=== PATIENT | female | born 1950 | race Caucasian/White ===

== ENCOUNTER → 2020-05-28 | Outpatient (CLI) | payer OTHER ==
[~2020-05-28] MED LIST: VITAMIN D31000 I1 PO
== END | disposition still patient (30) ==
LOC: COL.RAD 08:00
DX: Z20.828 Contact with and (suspected) exposure to other viral communicable diseases (principal)
CPT/HCPCS: A9500

== ENCOUNTER 2022-03-14 14:50 | Outpatient (CLI) | payer OTHER ==
[2022-03-14 15:19] VITALS: BP 132/76; PULSE 58; TEMP 98.9
[2022-03-14] MEDS ORDERED: CALCIUM CITRAT950 MG PO (15:19)
== END 2022-03-14 17:48 | disposition home or self-care (01) ==
LOC: EUO 14:50
DX: M81.0 Age-related osteoporosis without current pathological fracture (principal)
CPT/HCPCS: J3489